=== PATIENT | male | born 1995 | race African-American/Black ===

== ENCOUNTER 2018-05-13 21:29 | Inpatient (IN) | payer OTHER ==
[~2018-05-13] VITALS: Ht 180.3 cm; Wt 97.0 kg
[2018-05-13 23:12] LABS: BASOPHIL % 0.3 % (0-2); PLATELET COUNT 235 x10^3mcL (130-400); RED CELL DISTRIBUTION WIDTH 13.3 % (11.5-14.5)
[2018-05-13 23:33] LABS: CALCIUM 9.1 mg/dL (8.5-10.1); CARBON DIOXIDE 23.5 mmol/L (21-32); CHLORIDE SERUM 102 mmol/L (98-107); GFR1 > 60 mL/min; GLUCOSE SERUM 89 mg/dL (74-106); POTASSIUM SERUM 3.8 mmol/L (3.5-5.1); SODIUM SERUM 139 mmol/L (136-145)
[2018-05-13 23:37] LABS: ALBUMIN 3.9 g/dL (3.4-5.0); ALKALINE PHOSPHATASE 68 U/L (46-116); ALT/SGPT 22 U/L (16-63); AST/SGOT 16 U/L (15-37); BILIRUBIN TOTAL 0.5 mg/dL (0.20-1.00); TOTAL PROTEIN, SERUM 7.4 g/dL (6.4-8.2)
[2018-05-14 07:54] LABS: microscopic required? NO
[2018-05-14 09:30] LABS: UA SPECIFIC GRAVITY >=1.030 (1.005-1.035); urine erythrocyte NEGATIVE (NEGATIVE)
[2018-05-14 09:47] LABS: AMPHETAMINE QUAL UR NONE DETECTED (See below)
[2018-05-14 11:19] LABS: PHOSPHOROUS 3.6 mg/dL (2.5-4.9)
[2018-05-14 11:24] LABS: CHOLESTEROL/HDL RATIO 7.9
[2018-05-14 12:16] LABS: FREE T4 1.01 ng/dL (0.76-1.46); FREE THYROXINE INDEX 2.4 ug/dL (1.4-4.5); T4(THYROXINE) 7.1 ug/dL (4.7-13.3)
[2018-05-14 12:38] LABS: T3 TOTAL 0.92 ng/mL
[2018-05-14 12:47] VITALS: BP 123/78
[2018-05-14 17:43] VITALS: BP 129/67
[2018-05-14 20:41] VITALS: BP 122/60
[2018-05-15 05:23] VITALS: BP 123/65
[2018-05-15 05:41] LABS: BASOPHIL % 0.4 % (0-2); PLATELET COUNT 221 x10^3mcL (130-400); RED CELL DISTRIBUTION WIDTH 13.1 % (11.5-14.5)
[2018-05-15 05:50] LABS: CALCIUM 8.6 mg/dL (8.5-10.1); CARBON DIOXIDE 26.5 mmol/L (21-32); CHLORIDE SERUM 98 mmol/L (98-107); CREATININE SERUM 1.1 mg/dL (0.7-1.3); GFR1 > 60 mL/min; GLUCOSE SERUM 90 mg/dL (74-106); MAGNESIUM 1.9 mg/dL (1.8-2.4); PHOSPHOROUS 4.9 mg/dL (2.5-4.9); POTASSIUM SERUM 3.9 mmol/L (3.5-5.1); SODIUM SERUM 136 mmol/L (136-145)
[2018-05-15 08:25] VITALS: BP 118/58
[2018-05-15 17:00] VITALS: BP 128/76
[2018-05-15 21:10] VITALS: BP 115/73
[2018-05-16 06:08] VITALS: BP 120/75
[2018-05-16 07:15] LABS: BASOPHIL % 0.2 % (0-2); PLATELET COUNT 217 x10^3mcL (130-400); RED CELL DISTRIBUTION WIDTH 13.3 % (11.5-14.5)
[2018-05-16 09:35] LABS: CARBON DIOXIDE 22.8 mmol/L (21-32); CHLORIDE SERUM 108 mmol/L (98-107); CREATININE SERUM 1.2 mg/dL (0.7-1.3); GFR1 > 60 mL/min; GLUCOSE SERUM 96 mg/dL (74-106); MAGNESIUM 1.8 mg/dL (1.8-2.4); PHOSPHOROUS 4.6 mg/dL (2.5-4.9); POTASSIUM SERUM 4.4 mmol/L (3.5-5.1); SODIUM SERUM 145 mmol/L (136-145)
[2018-05-16 17:41] VITALS: BP 123/84
[2018-05-16 20:47] VITALS: BP 127/78
[2018-05-17 06:11] VITALS: BP 129/77
[2018-05-17 06:39] LABS: BASOPHIL % 0.2 % (0-2); PLATELET COUNT 210 x10^3mcL (130-400); RED CELL DISTRIBUTION WIDTH 13.1 % (11.5-14.5)
[2018-05-17 06:54] LABS: CALCIUM 8.9 mg/dL (8.5-10.1); CARBON DIOXIDE 25.4 mmol/L (21-32); CHLORIDE SERUM 106 mmol/L (98-107); CREATININE SERUM 1.1 mg/dL (0.7-1.3); GFR1 > 60 mL/min; GLUCOSE SERUM 90 mg/dL (74-106); POTASSIUM SERUM 3.9 mmol/L (3.5-5.1); SODIUM SERUM 142 mmol/L (136-145)
[2018-05-17 09:12] VITALS: BP 119/62
[2018-05-17 17:04] VITALS: BP 124/69
[2018-05-17 20:51] VITALS: BP 140/81
[2018-05-18 05:12] VITALS: BP 122/83
[2018-05-18 10:38] VITALS: BP 122/85
[2018-05-18 12:29] VITALS: BP 124/79
[2018-05-18 17:51] VITALS: BP 129/78
[2018-05-18 19:18] VITALS: BP 137/71
[2018-05-19 05:04] VITALS: BP 132/51; BP 132/73
[2018-05-19 08:50] VITALS: BP 125/64
[2018-05-19 16:45] VITALS: BP 120/77
[2018-05-19 20:17] VITALS: BP 116/77
[2018-05-20 05:18] VITALS: BP 116/59
[2018-05-20 08:18] VITALS: BP 115/76
[2018-05-20 17:18] VITALS: BP 124/70
[2018-05-20 20:27] VITALS: BP 135/84
[2018-05-21 00:08] VITALS: Ht 180.3 cm; Wt 97.0 kg
[2018-05-21 05:37] VITALS: BP 117/79
[2018-05-21 08:59] VITALS: BP 115/73
[2018-05-21 18:44] VITALS: BP 103/71
[2018-05-21 20:24] VITALS: BP 115/66
[2018-05-22 05:43] VITALS: BP 97/52
[2018-05-22 09:09] VITALS: BP 124/58
[2018-05-22 17:30] VITALS: BP 128/57
[2018-05-22 20:47] VITALS: BP 116/66
[2018-05-23 05:58] VITALS: BP 127/77
[2018-05-23 08:30] VITALS: BP 112/63
[2018-05-23 17:10] VITALS: BP 117/67
[2018-05-23 20:32] VITALS: BP 130/73
[2018-05-24 05:11] VITALS: BP 107/64
[2018-05-24 07:57] VITALS: BP 126/69
[2018-05-24] MEDS ORDERED: LAM25 PO (10:15)
[2018-05-24 11:46] VITALS: BP 111/66
[2018-05-24 12:05] VITALS: BP 111/66
== END 2018-05-24 12:57 | disposition home or self-care (01) | DRG 750 ==
LOC: ED 21:29 → MU 05-14 09:50
PROVIDERS: Emergency Medicine; Family Medicine
DX: F25.0 Schizoaffective disorder, bipolar type (principal); R45.851 Suicidal ideations; E78.5 Hyperlipidemia, unspecified; F12.20 Cannabis dependence, uncomplicated; Z68.32 Body mass index [BMI] 32.0-32.9, adult; F17.210 Nicotine dependence, cigarettes, uncomplicated; Z88.8 Allergy status to other drugs, medicaments and biological substances; F19.10 Other psychoactive substance abuse, uncomplicated; Z71.51 Drug abuse counseling and surveillance of drug abuser
CPT/HCPCS: 84439; G0480; Q0092

== ENCOUNTER 2018-06-07 20:07 | Inpatient (IN) | payer OTHER ==
[~2018-06-07] VITALS: Ht 180.3 cm; Wt 99.8 kg
[~2018-06-07 20:07] MED LIST: LAM25 PO
[2018-06-07 20:15] VITALS: Ht 180.3 cm; Wt 99.8 kg
[2018-06-07 20:53] LABS: BASOPHIL % 0.3 % (0-2); PLATELET COUNT 242 x10^3mcL (130-400); RED CELL DISTRIBUTION WIDTH 13.5 % (11.5-14.5)
[2018-06-07 21:01] LABS: CALCIUM 8.9 mg/dL (8.5-10.1); CARBON DIOXIDE 24.9 mmol/L (21-32); CHLORIDE SERUM 103 mmol/L (98-107); CREATININE SERUM 1.1 mg/dL (0.7-1.3); GFR1 > 60 mL/min; GLUCOSE SERUM 84 mg/dL (74-106); POTASSIUM SERUM 3.8 mmol/L (3.5-5.1); SODIUM SERUM 139 mmol/L (136-145)
[2018-06-07 21:02] LABS: microscopic required? NO
[2018-06-07 21:06] LABS: ALBUMIN 3.8 g/dL (3.4-5.0); ALKALINE PHOSPHATASE 70 U/L (46-116); ALT/SGPT 26 U/L (16-63); AST/SGOT 20 U/L (15-37); BILIRUBIN TOTAL 0.55 mg/dL (0.20-1.00); TOTAL PROTEIN, SERUM 7.8 g/dL (6.4-8.2)
[2018-06-07 21:13] LABS: UA SPECIFIC GRAVITY 1.025 (1.005-1.035); urine erythrocyte NEGATIVE (NEGATIVE)
[2018-06-07 21:19] LABS: AMPHETAMINE QUAL UR NONE DETECTED (See below)
[2018-06-08 16:21] VITALS: BP 129/75
[2018-06-08 17:11] LABS: CHOLESTEROL/HDL RATIO 7.2; PHOSPHOROUS 3.9 mg/dL (2.5-4.9)
[2018-06-08 17:24] LABS: FREE T4 0.94 ng/dL (0.76-1.46); FREE THYROXINE INDEX 2.4 ug/dL (1.4-4.5); T4(THYROXINE) 7.8 ug/dL (4.7-13.3)
[2018-06-08 17:43] LABS: T3 TOTAL 1.17 ng/mL
[2018-06-08 20:43] VITALS: BP 138/61
[2018-06-09 05:11] VITALS: BP 132/72
[2018-06-09 06:19] LABS: CALCIUM 8.7 mg/dL (8.5-10.1); CHLORIDE SERUM 105 mmol/L (98-107); CREATININE SERUM 1.1 mg/dL (0.7-1.3); GFR1 > 60 mL/min; GLUCOSE SERUM 85 mg/dL (74-106); HDL CHOLESTEROL 35 mg/dL (40-60); POTASSIUM SERUM 4.2 mmol/L (3.5-5.1); SODIUM SERUM 138 mmol/L (136-145); TRIGLYCERIDES 159 mg/dL (<150)
[2018-06-09 06:21] LABS: BASOPHIL % 0.3 % (0-2); PLATELET COUNT 243 x10^3mcL (130-400); RED CELL DISTRIBUTION WIDTH 13.3 % (11.5-14.5)
[2018-06-09 06:43] LABS: CHOLESTEROL 262 mg/dL (<200); CHOLESTEROL/HDL RATIO 7.5
[2018-06-09 08:45] VITALS: BP 144/63
[2018-06-09 18:15] VITALS: BP 122/76
[2018-06-09 20:32] VITALS: BP 120/78
[2018-06-10 05:34] VITALS: BP 109/55
[2018-06-10] MEDS ORDERED: SEROQUEL200 MG PO (16:02)
[2018-06-10 16:10] VITALS: BP 109/55
[2018-06-10 16:58] VITALS: BP 121/58
== END 2018-06-10 17:45 | DRG 817 ==
LOC: ED 20:07 → MU 06-08 15:07 → DU 06-08 16:19 → MU 06-08 19:07
PROVIDERS: Emergency Medicine; Internal Medicine
DX: T42.4X2A Poisoning by benzodiazepines, intentional self-harm, initial encounter (principal); F25.0 Schizoaffective disorder, bipolar type; E78.5 Hyperlipidemia, unspecified; F12.10 Cannabis abuse, uncomplicated; F17.210 Nicotine dependence, cigarettes, uncomplicated; F41.9 Anxiety disorder, unspecified; Y92.018 Other place in single-family (private) house as the place of occurrence of the external cause; Z68.31 Body mass index [BMI] 31.0-31.9, adult; Z88.8 Allergy status to other drugs, medicaments and biological substances
CPT/HCPCS: 83880; 84439; G0480

== ENCOUNTER 2018-06-13 20:29 | Emergency (ER) | payer OTHER ==
[~2018-06-13] VITALS: Ht 180.3 cm; Wt 99.8 kg
[~2018-06-13 20:29] MED LIST changes: +SEROQUEL200 MG PO
[2018-06-13 20:50] LABS: BASOPHIL % 0.6 % (0-2); PLATELET COUNT 261 x10^3mcL (130-400); RED CELL DISTRIBUTION WIDTH 13.7 % (11.5-14.5)
[2018-06-13 20:55] LABS: CALCIUM 9.4 mg/dL (8.5-10.1); CARBON DIOXIDE 23.5 mmol/L (21-32); CHLORIDE SERUM 107 mmol/L (98-107); CREATININE SERUM 1.2 mg/dL (0.7-1.3); GFR1 > 60 mL/min; GLUCOSE SERUM 94 mg/dL (74-106); POTASSIUM SERUM 4.4 mmol/L (3.5-5.1); SODIUM SERUM 141 mmol/L (136-145)
[2018-06-13 21:00] LABS: ALBUMIN 4.1 g/dL (3.4-5.0); ALKALINE PHOSPHATASE 72 U/L (46-116); ALT/SGPT 22 U/L (16-63); AST/SGOT 18 U/L (15-37); BILIRUBIN TOTAL 0.6 mg/dL (0.20-1.00); TOTAL PROTEIN, SERUM 8.1 g/dL (6.4-8.2)
[2018-06-13 23:00] LABS: AMPHETAMINE QUAL UR NONE DETECTED (See below)
[2018-06-14 17:31] VITALS: BP 126/83
== END 2018-06-14 17:31 ==
LOC: ED 20:29
PROVIDERS: Emergency Medicine
DX: F31.9 Bipolar disorder, unspecified (principal); R45.851 Suicidal ideations; F41.9 Anxiety disorder, unspecified; Z88.8 Allergy status to other drugs, medicaments and biological substances
CPT/HCPCS: 36415; G0480

== ENCOUNTER 2018-08-09 19:34 | Inpatient (IN) | payer OTHER ==
[~2018-08-09] VITALS: Ht 180.3 cm; Wt 95.8 kg
[2018-08-09 19:42] VITALS: Ht 180.3 cm; Wt 95.8 kg
[2018-08-09 20:36] LABS: BASOPHIL % 0.3 % (0-2); PLATELET COUNT 288 x10^3mcL (130-400); RED CELL DISTRIBUTION WIDTH 13.6 % (11.5-14.5)
[2018-08-09 20:45] LABS: CALCIUM 8.8 mg/dL (8.5-10.1); CARBON DIOXIDE 26.3 mmol/L (21-32); CHLORIDE SERUM 104 mmol/L (98-107); CREATININE SERUM 1.4 mg/dL (0.7-1.3); GFR1 > 60 mL/min; GLUCOSE SERUM 86 mg/dL (74-106); POTASSIUM SERUM 3.9 mmol/L (3.5-5.1); SODIUM SERUM 138 mmol/L (136-145)
[2018-08-09 20:58] LABS: ALBUMIN 4.1 g/dL (3.4-5.0); ALKALINE PHOSPHATASE 65 U/L (46-116); ALT/SGPT 23 U/L (16-63); AST/SGOT 27 U/L (15-37); TOTAL PROTEIN, SERUM 7.7 g/dL (6.4-8.2)
[2018-08-09 20:59] LABS: T4(THYROXINE) 4.3 ug/dL (4.7-13.3)
[2018-08-09 22:16] LABS: AMPHETAMINE QUAL UR NONE DETECTED (See below)
[2018-08-10 07:51] LABS: MAGNESIUM 1.9 mg/dL (1.8-2.4); PHOSPHOROUS 4.1 mg/dL (2.5-4.9)
[2018-08-10 07:53] LABS: CHOLESTEROL/HDL RATIO 6.2
[2018-08-10 08:02] LABS: FREE T4 0.75 ng/dL (0.76-1.46)
[2018-08-10 08:04] LABS: FREE THYROXINE INDEX 1.5 ug/dL (1.4-4.5); T4(THYROXINE) 4.3 ug/dL (4.7-13.3)
[2018-08-10 08:13] LABS: T3 TOTAL 0.87 ng/mL
[2018-08-10] MEDS ORDERED: SEROQUEL200 MG PO (08:48)
[2018-08-10 10:11] VITALS: BP 131/81
[2018-08-10 16:18] VITALS: BP 144/78
[2018-08-10 16:20] VITALS: BP 135/63
[2018-08-10 21:12] VITALS: BP 120/63
[2018-08-10 22:49] VITALS: BP 120/63
[2018-08-11 06:28] VITALS: BP 120/59
[2018-08-11 08:39] VITALS: BP 103/52
[2018-08-11 16:05] VITALS: BP 118/64
[2018-08-12 06:49] VITALS: BP 101/44
[2018-08-12 08:56] VITALS: BP 119/56
[2018-08-12 17:30] VITALS: BP 126/66
[2018-08-12 20:51] VITALS: BP 124/68
[2018-08-13 05:34] VITALS: BP 111/62
[2018-08-13 09:14] VITALS: BP 121/65
== END 2018-08-13 15:17 | disposition home or self-care (01) | DRG 469 ==
LOC: ED 19:34 → MU 08-10 07:13
PROVIDERS: Emergency Medicine; Internal Medicine
DX: N17.0 Acute kidney failure with tubular necrosis (principal); F25.0 Schizoaffective disorder, bipolar type; R45.851 Suicidal ideations; F12.10 Cannabis abuse, uncomplicated; F41.9 Anxiety disorder, unspecified; F17.210 Nicotine dependence, cigarettes, uncomplicated; E78.5 Hyperlipidemia, unspecified; E02 Subclinical iodine-deficiency hypothyroidism; F10.10 Alcohol abuse, uncomplicated; Y90.9 Presence of alcohol in blood, level not specified; Z88.8 Allergy status to other drugs, medicaments and biological substances
CPT/HCPCS: 84439; G0480

== ENCOUNTER 2019-06-13 17:09 | Inpatient (IN) | payer OTHER ==
[~2019-06-13] VITALS: Ht 180.3 cm; Wt 111.1 kg
[2019-06-13 18:00] VITALS: Ht 180.3 cm; Wt 111.1 kg
--- NOTE | 2019-06-13 18:11 | NUR ---
PT CAME INTO ED WITH C/O OF SUICIDAL IDEATION X1 MONTH, PT STS "I HAVE THOUGHTS OF OVERDOSING ON ZYPREXA LIKE I HAVE 8 MONTHS AGO AT [facility]" PT STS "THERE IS NO POINT IN BEING HERE NO ONE ELSE WANTS ME HERE I HAVE PUSHED EVERYONE AWAY BECAUSE OF WHO I AM AND MY MENTAL HEALTH HISTORY NO ONE WANTS TO BE AROUND ME" PT STS +SI -HI WITH ACTIVE PLAN, PT STS "I DON'T TALK WITH MY FAMILY MUCH THEY KICKED ME OUT OF THEIR LIFE I LIVE WITH A FRIEND BUT I WILL PUSH THEM AWAY TOO WITH MY PERSONALITY LIKE I DO EVERYONE ELSE" PT REPORTS THE "CLOSEST PERSON TO ME IS MY ASSOCIATE" PT APPEARS HOPELESS, HOWEVER CALM AND COOPERATIVE, PT AAOX4, RESPS E/U, SKIN INTACT, VSS, PT GOWNED, SAFETY PRECAUTIONS IN PLACE, PT BELONGINGS LABELED AND PLACED IN RADIO RM, PT VIEW OF NURSE STATION, WILL CONTINUE TO MONITOR
--- NOTE | 2019-06-13 18:12 | NUR ---
PT STS HX SCHIZOPHRENIA AND BIPOLAR DISORDER
--- NOTE | 2019-06-13 18:12 | NUR ---
PT INSTRUCTED TO PROVIDE URINE SPECIMEN ONOFRE
--- NOTE | 2019-06-13 18:15 | NUR ---
LAB AT BEDSIDE
[2019-06-13 18:32] LABS: BASOPHIL % 0.4 % (0-2); PLATELET COUNT 260 x10^3mcL (130-400); RED CELL DISTRIBUTION WIDTH 13.7 % (11.5-14.5)
[2019-06-13 18:39] LABS: CALCIUM 8.5 mg/dL (8.5-10.1); CARBON DIOXIDE 23.5 mmol/L (21-32); CHLORIDE SERUM 107 mmol/L (98-107); CREATININE SERUM 1.2 mg/dL (0.7-1.3); GFR1 > 60 mL/min; GLUCOSE SERUM 88 mg/dL (74-106); POTASSIUM SERUM 3.4 mmol/L (3.5-5.1); SODIUM SERUM 141 mmol/L (136-145)
[2019-06-13 18:42] LABS: ALBUMIN 3.6 g/dL (3.4-5.0); ALKALINE PHOSPHATASE 71 U/L (46-116); ALT/SGPT 27 U/L (16-63); AST/SGOT 22 U/L (15-37); BILIRUBIN TOTAL 0.7 mg/dL (0.20-1.00); TOTAL PROTEIN, SERUM 7.2 g/dL (6.4-8.2)
[2019-06-13 19:10] LABS: AMPHETAMINE QUAL UR POSITIVE (See below)
--- NOTE | 2019-06-13 19:10 | NUR ---
REPORT GIVEN TO RBAD STILES RN WHO IS RESUMING CARE OF PT AT THIS TIME
--- NOTE | 2019-06-13 19:15 | NUR ---
PT REPORT RECEIVED FROM MICAELA SHERIFF TO ASSUME CARE. PT RESTING IN A POSITION OF COMFORT AT THIS TIME, AOX4, RESP EVEN AND UNLABORED, NO ACUTE DISTRESS NOTED. PT CONTINUES TO VERBALIZED SUICIDAL IDEATIONS AT THIS TIME. PT CALM AND COOPERATIVE AT THIS TIME. IN VIEW OF NURSE'S STATION FOR COMFORT.
--- NOTE | 2019-06-13 19:20 | NUR ---
PT PROVIDED WITH TUNA SANDWICH, APPLE JUICE, AND MARILU CRACKERS, PT DENIES FOOD ALLERGIES.
--- NOTE | 2019-06-13 20:15 | NUR ---
PT RESTING IN A POSITION OF COMFORT AOX4, RESP EVEN AND UNLABORED, NO ACUTE DISTRESS NOTED. TELE PSYCH MONITOR AT BEDSIDE.
--- NOTE | 2019-06-13 21:07 | NUR ---
PT RESTING WITH EYES CLOSED, RESP EVEN AND UNLABORED, CHEST RISE AND FALL NOTED. PT REMAINS IN VIEW OF NURSE'S STATION FOR SAFETY.
--- NOTE | 2019-06-13 22:31 | NUR ---
PT CONTINUES TO REST WITH EYES CLOSED, RESP EVEN AND UNLABORED, NO ACUTE DISTRESS NOTED. PT ON SIDE.
--- NOTE | 2019-06-13 23:14 | NUR ---
MOVED PT BELONGINGS TO STORAGE BY [employer].
--- NOTE | 2019-06-14 00:06 | NUR ---
PT RESTING WITH EYES CLOSED, RESP EVEN AND UNLABORED, NO ACUTE DISTRESS NOTED.
--- NOTE | 2019-06-14 01:26 | NUR ---
PT RESTING IN A POSITION OF COMFORT, CHEST RISE AND FALL NOTED. PT REMAINS ON MONITOR IN VIEW OF NURSE'S STATION.
--- NOTE | 2019-06-14 02:12 | NUR ---
SPOKE WITH DR PONCE AND PROVIDED WITH PT REPORT.
--- NOTE | 2019-06-14 02:37 | NUR ---
TELE PSYCH EVAL IN PROGRESS AT THIS TIME.
--- NOTE | 2019-06-14 03:38 | NUR ---
PT RESTING IN A POSITION OF COMFORT WITH EYES CLOSED, RESP EVEN AND UNLABORED, NO ACUTE DISTRESS NOTED.
--- NOTE | 2019-06-14 04:51 | NUR ---
5150 WRITTEN BY [place] [employer] OFFICER FELICIANO #[id number] AND ORIGINAL [id number] PLACED IN CHART.
--- NOTE | 2019-06-14 07:10 | NUR ---
PT IS AWAKE, LAYING IN GURNEY, REMAINS IN DIRECT LINE OF VISION OF NURSES STATION.
--- NOTE | 2019-06-14 07:11 | NUR ---
[facility] still actively working on finding placement for this pt. Per scene shifter no openings overnight. Will f/u with facilities. Will contact with any update.
--- NOTE | 2019-06-14 07:47 | NUR ---
PT'S BREAKFAST AT BEDSIDE. PT SLEEPING IN GURNEY, GOOD CHEST RISE AND FALL NOTED. PT REMAINS IN DIRECT LINE OF SIGHT OF NURSE'S STATION.
--- NOTE | 2019-06-14 07:51 | NUR ---
PT ATE BREAKFAST, IS LAYING IN GURNEY RESTING, AWAKE, ALERT, SPEAKING IN FULL CLEAR SENTENCES. PT IS CALM AND COOPERATIVE.
--- NOTE | 2019-06-14 09:31 | NUR ---
PT RESTING IN GURNEY, AWAKE, ALERT, CALM, AND COOPERATIVE, REQUESTING A SANDWICH AND SODA. PT CONTINUES TO FEEL SI.
--- NOTE | 2019-06-14 10:41 | NUR ---
PT RESTING IN RPEPIN, REMAINS CALM AND COOPERATIVE. CONTINUES TO BE IN DIRECT LINE OF VISION OF NURSE'S STATION.
--- NOTE | 2019-06-14 11:16 | NUR ---
F/U with contracted facilities: [facility]: s/w Sergio No beds at this time. Packet on file for future openings. [facility]: Rang continuously, unable to leave message. [facility]: s/w Gogo No beds at this time [facility] Intake stated no beds. [facility]: Gabriel Nevarez, no beds at this time. Will continue to f/u, will contact with any updates.
--- NOTE | 2019-06-14 12:56 | NUR ---
PT SITTING UP IN BED EATING LUNCH, IN VIEW OF THE NURSE'S STATION.
--- NOTE | 2019-06-14 13:57 | NUR ---
PT RESTING IN GURNEY, GOOD CHEST RISE AND FALL NOTED. IN DIRECT SIGHT OF NURSE'S STATION.
--- NOTE | 2019-06-14 14:53 | NUR ---
PT ASKED IF HE CONTINUES TO HAVE SI, PT NODDING HIS HEAD YES. PT IS LAYING IN GURNEY, AWAKE, ALERT, CALM AND COOPERATIVE. PT REMAINS IN DIRECT SIGHT OF NURSE'S STATION.
--- NOTE | 2019-06-14 16:02 | NUR ---
PT SLEEPING IN GURNEY, GOOD CHEST RISE AND FALL NOTED. PT REMAINS IN DIRECT SIGHT OF NURSE'S STATION. RESP E/U, NAD NOTED.
--- NOTE | 2019-06-14 17:02 | NUR ---
PT AWAKE, REQUESTING SANDWICH. PT IS CALM AND COOPERATIVE, CONTINUES TO BE IN SIGHT OF NURSE'S STATION. NAD NOTED.
--- NOTE | 2019-06-14 18:19 | NUR ---
PT INQUIRING ABOUT PLACEMENT, WILL FOLLOW UP WITH NEXT PLAN OF CARE
[2019-06-14] MEDS ORDERED: ZYPREXA10 M1 PO (18:53)
[2019-06-14] MEDS ORDERED: PROZAC40 MG PO (18:53)
--- NOTE | 2019-06-14 19:08 | NUR ---
REPORT CALLED TO [employer] LINE WORKER JIMMY TO ASSUME CARE FOR PT.
[2019-06-14 19:31] VITALS: BP 113/51
--- NOTE | 2019-06-14 19:36 | NUR ---
[facility] NOC shift is aware of patient and will continue to call for psych placement with contracted [facility] facilities.
--- NOTE | 2019-06-14 19:40 | NUR ---
RECEIVED FROM ER, TRANSPORTED VIA [facility]. AWAKE AND ALERT, ABLE TO MAKE NEEDS KNOWN. BREATHING EVEN AND UNLABORED ON ROOM AIR. SALINE LOCK TO RIGHT AC, INTACT. 5150 HOLD. SITTER IN ROOM. PT STATED HE LIVES IN AN APARTMENT WITH A FRIEND, BUT WILL NOT PROVIDE ANY EMERGENCY CONTACT. CALM, DENIES HAVING AUDITORY OR VISUAL HALLUCINATIONS. STATED HAS THOUGHTS OF HURTING HIMSELF. INSTRUCTED ON USE OF CALL LIGHT TO CALL FOR ASSISTANCE, PLACED, WITHIN EASY REACH. STATED HE WAS HUNGRY, WAS PROVIDED SANDWICH BY NURSE ZAMAN. ENDORSED TO NURSE ZAMAN
[2019-06-14 20:02] VITALS: BP 133/61
--- NOTE | 2019-06-14 22:18 | NUR ---
Follow up calls were made to contracted [facility] facilities, still no beds available at this time. [facility], spoke with Jen. [facility], spokew isaac Schneider. [facility], no answer, left message to [phone]. [facility], spoke with Felix. [facility], spoke with Richa. [facility], spoke with Jolie. [facility], spoke with Raquel. [facility], spoke with Salena. Unit will be notified if and when a bed becomes available.
--- NOTE | 2019-06-15 00:19 | NUR ---
PT ASLEEP COMFORTABLY IN BED. SITTER AT BEDSIDE. NO ACUTE DISTRESS NOTED. EVEN AND UNLABORED RESPIRATION ON RA. MEDSURG PT. IVL PATENT AND INTACT. BED IN LOWEST POSITION. SIDE RAILS UPX2. CALL LIGHT WITHIN REACH. WILL CONTINUE TO MONITOR.
--- NOTE | 2019-06-15 06:47 | NUR ---
PT SLEPT COMFORTABLY IN INTERVALS THROUGHOUT THE SHIFT. SITTER AT BEDSIDE. NO ACUTE CHANGES NOTED. ALL NEEDS TENDED TO AND MET. ALL SCHEDULED MEDICATIONS GIVEN. IVL PATENT AND INTACT. STILL HAVING SUICIDAL THOUGHTS. BED IN LOWEST POSITION. SIDE RAILS UPX2. CALL LIGHT WITHIN REACH. WILL ENDORSE TO ONCOMING SHIFT.
[2019-06-15 07:05] VITALS: BP 106/60
--- NOTE | 2019-06-15 07:34 | NUR ---
RECEIVED HAND OFF REPORT FROM NIGHT NURSE, AUSTYN. PATIENT RIGHT SIDE LAYING IN BED ON ROOM AIR. AWOKEN TO VOICE, A/OX4. PATIENT STATES HE HAD A GOOD NIGHT AND IS "JUST WAITING FOR PLACEMENT" PATIENT DID NOT VOICE ANY SUICIDAL IDIATIONS AT THIS TIME. ON 5150 HOLD FOR STATING HE WANTED TO END HIS LIFE WITH [facility] BUT DID NOT HAVE THE PILLS TO DO SO. ON SUICIDAL PRECAUTIONS WITH SITTER IN ROOM. M/S PATIENT DENIES CHEST PAIN. 20G IV TO RIGHT AC FLUSHING WELL. NO LABS THIS AM. PATIENT IS MEDICALLY CLEARED AND AWAITING PLACEMENT. ORIENTED PATIENT TO CALL LIGHT AND PLACED CALL LIGHT WITHIN REACH, INSTRUCTED TO TELL SITTER IF NEEDING ANYTHING OR TO USE CALL LIGHT
--- NOTE | 2019-06-15 07:44 | NUR ---
No updates on placement per nightshift, contacted the following facilities: [facility]: s/w Jen, [facility]: s/w Jennie, facility is full for the night. [facility]: No answer, left voicemail. [facility]: s/w Felix No beds available. [facility]: s/w Diann, states no available beds. [facility]: s/w Jolie, states no beds available, packet on file. [facility]: s/w Analy, states possible d/cs in the morning, requests to call back during AM shift. [facility]: s/w Salena, no beds at this time. Day shift will continue to actively work on finding placement. Will contact with any updates.
--- NOTE | 2019-06-15 08:51 | NUR ---
ADMINISTERED MEDICAITON PER NOV. PATIENT HAD NO QUESTIONS AT THIS TIME. RESTING IN BED. CALL LIGHT WITHIN REACH, SITTER IN ROOM
[2019-06-15 11:52] VITALS: BP 115/61
--- NOTE | 2019-06-15 12:47 | NUR ---
PATIENT RESTING A THIS TIME, LAYING SUPINE IN BED. RESPONSIVE TO VOICE. SIGHING DEEPLY AND STATING THAT HE "ISN'T IN A GOOD PLACE RIGHT NOW" BUT WOULD NOT ELABORATE HIS STATEMENT. DENEIS ANY NEEDS. UNDERSTANDING OF SITTER IN ROOM FOR OBSERVATION AND SAFETY. CALL LIGHT WITHIN REACH
--- NOTE | 2019-06-15 14:13 | NUR ---
[facility]: s/w Daphne, no beds at this time, possible openings later today, packet on file for waitlist. [facility]: s/w Larry, states no openings, packet on file for waitlist. [facility]: s/w Swapnil, states no openings today, completely saturated. [facility]: s/w Jolie No openings today. [facility]: rang continously, unable to leave message, packet faxed. [facility]: s/w Esther, no beds at this time , packet on file. Will continue to look for placement. Will contact with any updates.
--- NOTE | 2019-06-15 18:18 | NUR ---
PATIENT NEEDS MET DURING SHIFT, NO CHANGED IN PLACEMENT STATUS. PPATIENT AWARE, NEW ORDERS FOR AM LABS. WILL ENDORSE APTIENT TO HEATER OPERATOR
--- NOTE | 2019-06-15 19:05 | NUR ---
CARE ASSUMED FROM OUTGOING RN. PT RESTING COMFORTABLY IN BED. NO ACUTE DISTRESS NOTED. SITTER AT BEDSIDE. IV DISLOGDED ACCIDENTALLY WHEN IN BATHROOM, CATHETER INTACT, PRESSURE APPLIED, BLEEDING STOPPED. WILL MAKE MD AWARE. EVEN AND UNLABORED RESPIRATIONS ON RA. MEDSURG PT. BED IN LOWEST POSITION. SIDE RAILS UPX2. CALL LIGHT WITHIN REACH. WILL CONTINUE TO MONITOR.
[2019-06-15 20:12] VITALS: BP 133/52
--- NOTE | 2019-06-15 20:17 | NUR ---
Shift report given, will continue to monitor notes and help with placement
--- NOTE | 2019-06-16 00:21 | NUR ---
PT ASLEEP COMFORTABLY IN BED. SITTER AT BEDSIDE. EVEN AND UNLABORED RESPIRATIONS ON RA. NO IV ACCESS AT THIS TIME, MD AWARE. BED IN LOWEST POSITION. SIDE RAILS UPX2. CALL LIGHT WITHIN REACH. WILL CONTINUE TO MONITOR.
[2019-06-16 05:09] VITALS: BP 105/65
[2019-06-16 06:19] LABS: BASOPHIL % 0.3 % (0-2); PLATELET COUNT 216 x10^3mcL (130-400); RED CELL DISTRIBUTION WIDTH 13.9 % (11.5-14.5)
--- NOTE | 2019-06-16 06:25 | NUR ---
PT SLEPT COMFORTABLY IN INTERVALS THROUGHOUT THE SHIFT. SITTER AT BEDSIDE. NO ACUTE CHANGES NOTED. ALL NEEDS TENDED TO AND MET. ALL SCHEDULED MEDICATIONS GIVEN. BED IN LOWEST POSITION. SIDE RAILS UPX2. CALL LIGHT WITHIN REACH. WILL ENDORSE TO ONCOMING SHIFT.
[2019-06-16 06:37] LABS: CALCIUM 8.4 mg/dL (8.5-10.1); CARBON DIOXIDE 26.1 mmol/L (21-32); CHLORIDE SERUM 110 mmol/L (98-107); GFR1 > 60 mL/min; GLUCOSE SERUM 82 mg/dL (74-106); MAGNESIUM 1.9 mg/dL (1.8-2.4); POTASSIUM SERUM 3.5 mmol/L (3.5-5.1); SODIUM SERUM 144 mmol/L (136-145)
--- NOTE | 2019-06-16 07:15 | NUR ---
REPORT RCD FROM JAZIEL ZAMAN. PATIENT ASLEEP, REGULAR RESPS, SITTER AT BEDSIDE. BED LOW. PER JAZIEL ZAMAN, PATIENT PULLED IV YESTERDAY AND MD AWARE AND THERE IS NO NEED FOR IV. NO IV ACCESS AT THIS TIME. WILL MONITOR.
--- NOTE | 2019-06-16 08:20 | NUR ---
SHIFT ASSESSMENT PERFORMED AND DOCUMENTED. PATIENT SITTING UP EATING BREAKFAST. APPEARS SAD AND DEPRESSED. WHEN ASKED NAME PATIENT STATES "YOU KNOW MY NAME", BUT THEN AGREES TO GIVE NAME AND . COOPERATIVE WITH ASSESSMENT BUT HAS DEPRESSED MOOD. WHEN ASKED IF HE HAS THOUGHTS OF HURTING HIMSELF, HE DENIES. INSTRUCTED PATIENT TO INFORM SITTER IF HE HAS ANY NEEDS AND SHE WILL CALL FOR NURSE. PATIENT AGREES VERBALLY. BED LOW. WILL MONITOR.
--- NOTE | 2019-06-16 09:04 | NUR ---
MEDICATIONS GIVEN PER MAR. PATIENT IS CALM, RESTING ON RIGHT SIDE AFTER TAKING MEDICATIONS. SITTER AT BEDSIDE. NO OTHER NEEDS AT THIS TIME. WILL MONITOR.
[2019-06-16 09:07] VITALS: BP 123/83
--- NOTE | 2019-06-16 10:03 | NUR ---
PATIENT ASLEEP, REGULAR RESPS, SITTER AT BEDSIDE, BED LOW. WILL MONITOR.
--- NOTE | 2019-06-16 10:18 | NUR ---
[facility] CRITICAL LAB THAT PATIENT MRSA NARES POSITIVE. INFORMED CLYDE CHARGE NURSE. TELEPHONED NURSE PRACTITIONER, DARIN AND INFORMED OF RESULT WHO GAVE TELEPHONE ORDER FOR MRSA IN PATIENT PROTOCOL, ENTERED BY NURSE AT THIS TIME. ALSO INFORMED DENYS WEBSTER THAT PATIENT HAS NO IV ACCESS FROM PREVIOUS SHIFT. OKAY TO CONTINUE WITHOUT IV ACCESS PER DENYS WEBSTER. PER VENKATESH TANG NURSE, PATIENT WILL BE ISOLATED ONOFRE.
--- NOTE | 2019-06-16 11:39 | NUR ---
SHERRIE WASH PROVIDED TO AMAURY HANSON TO ASSIST PATIENT WITH MRSA PROTOCOL TREATMENT. PATIENT ASLEEP AT THIS TIME, REGULAR RESPS, SITTER AT BEDSIDE.
--- NOTE | 2019-06-16 13:18 | NUR ---
f/u with contracted facilities: [facility]: No beds at this time, packet on file. [facility]: No beds, requests not to fax packet until open beds. [facility]: No openings today. [facility]: No answer, packet refaxed. [facility]: No openings at this time, packet on file. [facility]: Packet on file. No beds.
--- NOTE | 2019-06-16 13:45 | NUR ---
PATIENT ASLEEP, REGULAR RESPS, LYING ON LEFT SIDE. BED LOW, SITTER AT BEDSIDE. WILL MONITOR.
--- NOTE | 2019-06-16 14:42 | NUR ---
PATIENT ASLEEP, REGULAR RESPS, SITTER AT BEDSIDE.
--- NOTE | 2019-06-16 16:32 | NUR ---
PATIENT AWAKE, WATCHING TELEVISION AT THIS TIME. REPORTS NO NEEDS, IS POLITE TO NURSE. BED LOW. SITTER AT BEDSIDE.
[2019-06-16 16:33] VITALS: BP 129/81
--- NOTE | 2019-06-16 17:53 | NUR ---
PATIENT APPEARS TO BE IN A BETTER MOOD AT THIS TIME, FRIENDLY, MORE TALKATIVE. REQUESTING A SANDWICH HE IS STILL HUNGRY, PROVIDED ONE FROM PATIENT REFRIGERATOR. NO OTHER NEEDS. CONTINUE TO WAIT FOR DR. JORGE TO CONSULT AND PLACEMENT FOR PATIENT. SITTER AT BEDSIDE.
--- NOTE | 2019-06-16 19:29 | NUR ---
REPORT GIVEN TO JAZIEL SINGH. PATIENT AHS BEEN RELOCATED TO ISOLATION WITH SITTER FOR MRSA POSITIVE NARES, CONTACT PRECAUTIONS. PT APPEARS TO BE IN A BETTER MOOD THIS EVENING, MORE TALKATIVE. BED LOW, CALL LIGHT WITHIN REACH. CARE ENDORSED.
--- NOTE | 2019-06-16 19:30 | NUR ---
RECIEVED PATIENT AT START OF SHIFT A/O X4. PATIENT STATES HE FEELS DEPRESSED AND PLANS TO COMMIT SUICIDE BY OVERDOSE. PATIENT IS AWAITING CONSULT FROM DR. JORGE. 3365 ACTIVE, SITTER AT BEDSIDE. CONTACT PRECAUTIONS IN PLACE FOR POSITIVE MRSA OF NARES. BED LOCKED AND IN LOWEST POSITION. CALL LIGHT AND BEDSIDE TABLE WITHIN REACH. NO IV ACCESS. FAST FOODS WORKER DARIN CHAVEZ.
[2019-06-16 21:00] VITALS: BP 135/65
--- NOTE | 2019-06-17 00:14 | NUR ---
PATIENTS EYES ARE CLOSED. BREATHS EVEN AND REGULAR. NO SIGNS OF DISTRESS. SITTER AT BEDSIDE. CALL LIGHT AND BEDSIDE TABLE WITHIN REACH.
--- NOTE | 2019-06-17 00:36 | NUR ---
Spoke with nurse Flor regarding patient. She is aware of the hold expiring and will update us. She did state that the patient will still need isolation precautions
[2019-06-17 04:51] VITALS: BP 113/52
--- NOTE | 2019-06-17 06:11 | NUR ---
PATIENT IS AWAKE. REFUSED LABS THIS MORNING. DR. PETTIT AWARE. DENIES PAIN. NO SOB ON RA. NO IV ACCESS. BED LOCKED AND IN LOWEST POSIITON. CALL LIGHT WITHIN REACH. WILL ENDORSE CARE TO DAYSHIFT NURSE.
--- NOTE | 2019-06-17 06:13 | NUR ---
PATIENTS EYES ARE CLOSED, BREATHS EVEN. NO SOB ON RA. NO IV ACCESS. BED LOCKED AND IN LOWEST POSIITON. CALL LIGHT WITHIN REACH. SITTER AT BEDSIDE. WILL ENDORSE CARE TO DAYSHIFT NURSE.
--- NOTE | 2019-06-17 08:30 | NUR ---
AAO TIMES 4. MED SURG. LUNGS CTA. NO SOB. O2 SAT ON RA 98%. BS'S ACTIVE TIMES 4. NO IV SITE. CONTACT ISOLATION FOR MRSA NARES. PERIHPERAL PULSES PALPABLE. NO EDEMA. NO C/O PAIN. WHEN ASKED HE STATES "I STILL FEEL SUICIDAL".
[2019-06-17 08:50] VITALS: BP 119/70
--- NOTE | 2019-06-17 12:35 | NUR ---
COVERING FOR PRIMARY RN, PATIENT REQUESTING FOR DIFFERENT LUNCH ENTREE. REQUESTING FOR PB/J SANDWICH. KITCHEN STAFF MADE AWARE AND WILL DELIVER TO PATIENT. NO SIGN OF ACUTE DISTRESS. SITTER AT BEDSIDE.
[2019-06-17 16:43] VITALS: BP 115/55
--- NOTE | 2019-06-17 17:20 | NUR ---
DARIN MCFARLANE NOTIFIED THAT THIS PATIENT CLEARED FROM , BUT HIS LONG TERM CLOSED [id number] TODAY, HE IS HOMELESS. HE WILL LIKELY BE DISCHARGED TOMORROW.
--- NOTE | 2019-06-17 17:52 | NUR ---
AAO TIMES 4. HE WAS CLEARED FROM HIS BY DR JORGE. AMBULATORY, HE TOOK A A SHOWER TODAY. NO C/O PAIN. NO SOB. VS'S STABLE. COOPERATIVE. NO IV SITE.
--- NOTE | 2019-06-17 19:25 | NUR ---
RECIEVED PT RESTING IN BED WITH NO ACUTE DISTRESS, ASSESMENT PERFORMED, PT IS A/OX4, NO COMPLAINTS OF SINGER OR DIZZINESS, PT DENIES SI AT THIS TIME, PT DENIES PAIN OR SOB, SAFETY PRECAUTIONS IN PLACE, PT HAS NO IV, DR AWARE, ALL NEEDS ATTENDED TO WILL COTNTINUE TO MONITOR.
[2019-06-17 20:25] VITALS: BP 138/57
--- NOTE | 2019-06-17 22:20 | NUR ---
PT RESTING IN BED WITH NO ACUTE DISTRESS, WATCHING TV, PT DENIES PAIN AT THIS TIME, ALL NEEDS ATTENDED TO WILL CONTINUE TO MONITOR
--- NOTE | 2019-06-18 00:10 | NUR ---
PT RESTING IN BED AT THIS TIME, PT DENIES PAIN OR SOB, ALL PT NEEDS ATTENDED TO AT THIS TIME, SAFETY PRECAUTIONS IN PLACE, WILL CONTINUE TO MONITOR
[2019-06-18 05:12] VITALS: BP 119/43
--- NOTE | 2019-06-18 05:23 | NUR ---
PT RESTED COMFORTABLY THROUGHOUT THE NIGHT, THE PATIENT DENIED PAIN OR SOB, PT DENIED THOUGHTS OF SI, ALL PT NEEDS WERE ATTENDED TO THROUGHOUT SHIFT, WILL CONTINUE TO MONITOR AND ENDORSE CARE TO ONCOMING RN
--- NOTE | 2019-06-18 07:35 | NUR ---
RECEIVED PATIENT SLEEPING IN BED, AROUSABLE. DENIES PAIN. NO ACUTE DISTRESS NOTED. PATIENT ON ROOM AIR. PATIENT AMBULATORY WITH NO ASSIST. NO IV ACCESS NOTED. PATIENT DENIES THOUGHTS OF SUICIDE, DENIES PLAN. CALL LIGHT WITHIN REACH, BED IN LOW POSITION. WILL CONTINUE TO MONITOR.
[2019-06-18 08:35] VITALS: BP 134/74
--- NOTE | 2019-06-18 09:13 | NUR ---
Change of shift report given, will continue to monitor notes and help facilitate placement
[2019-06-18] MEDS ORDERED: BACOO (10:19)
[2019-06-18] MEDS ORDERED: APLICARE ANTIS118 M3 TOP (10:21)
[2019-06-18 11:57] VITALS: BP 134/74
--- NOTE | 2019-06-18 12:30 | NUR ---
PATIENT WAS DISCHARGED TODAY. PATIENT WHEN DOWN WITH INTELLECTUAL PROPERTY PARALEGAL AT SIDE. PATIENT RECEIVED BUS PASS FOR TRANSPORTATION. PATIENT STATED HE WILL BE HEADING TO [facility]. PATIENT RECEIVED COPY OF DISCHARGED INSTRUCTIONS, PATIENT UNDERSTANDS & AGREES WITH D/C INSTRUCTIONS AND PLAN OF CARE INLUDING FOLLOW UP WITH PCP & MEDICATIONS. PATIENT HAD NO IV UPON D/C. ARMBANDS REMOVED. CLOTHS & FOOD OFFERED.
== END 2019-06-18 12:24 | disposition home or self-care (01) | DRG 753 ==
LOC: ED 17:09 → MU 06-14 17:39
PROVIDERS: Emergency Medicine; ADMIT General Practice
DX: F31.9 Bipolar disorder, unspecified (principal); R45.851 Suicidal ideations; Z91.14 Patient's other noncompliance with medication regimen; F41.8 Other specified anxiety disorders; F12.10 Cannabis abuse, uncomplicated; F15.10 Other stimulant abuse, uncomplicated; F17.210 Nicotine dependence, cigarettes, uncomplicated; Z88.8 Allergy status to other drugs, medicaments and biological substances; Z91.013 Allergy to seafood; F41.9 Anxiety disorder, unspecified
CPT/HCPCS: G0378; G0480

== ENCOUNTER 2019-08-24 17:40 | Inpatient (IN) | payer OTHER ==
[~2019-08-24] VITALS: Ht 180.3 cm; Wt 103.4 kg
[~2019-08-24 17:40] MED LIST changes: +APLICARE ANTIS118 M3 TOP; +BACOO; +PROZAC40 MG PO; +ZYPREXA10 M1 PO
[2019-08-24 17:48] VITALS: Ht 180.3 cm; Wt 103.4 kg
[2019-08-24 18:41] LABS: BASOPHIL % 0.2 % (0-2); PLATELET COUNT 260 x10^3mcL (130-400); RED CELL DISTRIBUTION WIDTH 13.5 % (11.5-14.5)
[2019-08-24 18:48] LABS: CALCIUM 8.5 mg/dL (8.5-10.1); CHLORIDE SERUM 107 mmol/L (98-107); CREATININE SERUM 1.4 mg/dL (0.7-1.3); GFR1 > 60 mL/min; GLUCOSE SERUM 124 mg/dL (74-106); POTASSIUM SERUM 3.9 mmol/L (3.5-5.1); SODIUM SERUM 142 mmol/L (136-145)
[2019-08-24 18:53] LABS: ALBUMIN 3.9 g/dL (3.4-5.0); ALKALINE PHOSPHATASE 76 U/L (46-116); ALT/SGPT 22 U/L (16-63); AST/SGOT 16 U/L (15-37); BILIRUBIN TOTAL 0.7 mg/dL (0.20-1.00); TOTAL PROTEIN, SERUM 7.8 g/dL (6.4-8.2)
[2019-08-24 20:02] LABS: microscopic required? NO
[2019-08-24 20:37] LABS: UA SPECIFIC GRAVITY 1.025 (1.005-1.035); urine erythrocyte NEGATIVE (NEGATIVE)
[2019-08-24 20:51] LABS: AMPHETAMINE QUAL UR POSITIVE (See below)
[2019-08-25 18:40] LABS: PHOSPHOROUS 2.8 mg/dL (2.5-4.9)
[2019-08-25 18:45] LABS: T3 TOTAL 0.94 ng/mL
[2019-08-25 18:53] LABS: FREE T4 0.93 ng/dL (0.76-1.46); T4(THYROXINE) 5.8 ug/dL (4.7-13.3)
[2019-08-25 20:44] VITALS: BP 131/78
[2019-08-26 09:08] VITALS: BP 132/80
[2019-08-26 13:00] VITALS: BP 129/70
[2019-08-26 17:22] VITALS: BP 121/72
[2019-08-26 17:41] LABS: CALCIUM 8.6 mg/dL (8.5-10.1); CARBON DIOXIDE 27.3 mmol/L (21-32); CHLORIDE SERUM 107 mmol/L (98-107); CREATININE SERUM 1.2 mg/dL (0.7-1.3); GFR1 > 60 mL/min; GLUCOSE SERUM 79 mg/dL (74-106); POTASSIUM SERUM 3.8 mmol/L (3.5-5.1); SODIUM SERUM 143 mmol/L (136-145)
[2019-08-26 18:32] LABS: BASOPHIL % 0.3 % (0-2); PLATELET COUNT 222 x10^3mcL (130-400); RED CELL DISTRIBUTION WIDTH 13.6 % (11.5-14.5)
[2019-08-26 20:37] VITALS: BP 138/82
[2019-08-27 09:00] VITALS: BP 133/82
[2019-08-27 13:51] VITALS: BP 135/79
[2019-08-27 16:59] VITALS: BP 115/76
[2019-08-28 05:00] VITALS: BP 135/74
[2019-08-28 09:30] VITALS: BP 125/67
[2019-08-28 17:00] VITALS: BP 127/73
[2019-08-28 20:05] VITALS: BP 140/83
[2019-08-29 04:40] VITALS: BP 114/62
[2019-08-29 07:03] VITALS: BP 104/68
[2019-08-29 10:57] VITALS: BP 125/76
[2019-08-29 12:52] VITALS: BP 125/76
[2019-08-29] MEDS ORDERED: BACO TOP (13:30)
== END 2019-08-29 13:35 | disposition home or self-care (01) | DRG 750 ==
LOC: ED 17:40 → MU 08-25 16:36
PROVIDERS: Emergency Medicine; ADMIT Internal Medicine
DX: F25.0 Schizoaffective disorder, bipolar type (principal); R45.851 Suicidal ideations; R45.850 Homicidal ideations; F41.1 Generalized anxiety disorder; F15.10 Other stimulant abuse, uncomplicated; F12.10 Cannabis abuse, uncomplicated; Z91.14 Patient's other noncompliance with medication regimen; Z59.0 Homelessness; Z22.322 Carrier or suspected carrier of Methicillin resistant Staphylococcus aureus; Z68.33 Body mass index [BMI] 33.0-33.9, adult
CPT/HCPCS: 83880; 84439; G0378; G0480; Q0092

== ENCOUNTER 2019-09-14 18:58 | Inpatient (IN) | payer OTHER ==
[~2019-09-14] VITALS: Ht 180.3 cm; Wt 106.2 kg
[~2019-09-14 18:58] MED LIST changes: +BACO TOP
[2019-09-14 19:52] LABS: microscopic required? NO
[2019-09-14 20:08] LABS: UA SPECIFIC GRAVITY >=1.030 (1.005-1.035); urine erythrocyte NEGATIVE (NEGATIVE)
[2019-09-14 20:12] LABS: BASOPHIL % 0.3 % (0-2); PLATELET COUNT 221 x10^3mcL (130-400); RED CELL DISTRIBUTION WIDTH 13.4 % (11.5-14.5)
[2019-09-14 20:17] LABS: AMPHETAMINE QUAL UR NONE DETECTED (See below)
[2019-09-14 20:22] LABS: CALCIUM 9.1 mg/dL (8.5-10.1); CARBON DIOXIDE 25.1 mmol/L (21-32); CHLORIDE SERUM 105 mmol/L (98-107); GFR1 > 60 mL/min; GLUCOSE SERUM 86 mg/dL (74-106); POTASSIUM SERUM 4.1 mmol/L (3.5-5.1); SODIUM SERUM 139 mmol/L (136-145)
[2019-09-14 20:27] LABS: ALKALINE PHOSPHATASE 68 U/L (46-116); ALT/SGPT 28 U/L (16-63); AST/SGOT 20 U/L (15-37); BILIRUBIN TOTAL 0.6 mg/dL (0.20-1.00)
[2019-09-15 20:27] LABS: PHOSPHOROUS 4.3 mg/dL (2.5-4.9)
[2019-09-15 21:15] VITALS: BP 132/84
[2019-09-15 21:21] VITALS: Ht 180.3 cm; Wt 106.2 kg
[2019-09-16 06:54] VITALS: BP 107/51
[2019-09-16 08:38] VITALS: BP 109/54
[2019-09-16 15:57] VITALS: BP 127/60
[2019-09-16 19:43] VITALS: BP 119/75
[2019-09-16 21:19] LABS: BASOPHIL % 0.4 % (0-2); PLATELET COUNT 219 x10^3mcL (130-400); RED CELL DISTRIBUTION WIDTH 13.1 % (11.5-14.5)
[2019-09-16 21:35] LABS: CALCIUM 8.6 mg/dL (8.5-10.1); CARBON DIOXIDE 28.5 mmol/L (21-32); CHLORIDE SERUM 103 mmol/L (98-107); CREATININE SERUM 1.2 mg/dL (0.7-1.3); GFR1 > 60 mL/min; GLUCOSE SERUM 101 mg/dL (74-106); POTASSIUM SERUM 3.8 mmol/L (3.5-5.1); SODIUM SERUM 137 mmol/L (136-145)
[2019-09-17 05:31] VITALS: BP 118/72
[2019-09-17 08:00] VITALS: BP 111/44
[2019-09-17 15:06] VITALS: BP 106/57
[2019-09-17 19:11] VITALS: BP 120/77
[2019-09-17 20:00] VITALS: BP 117/69
[2019-09-18 05:18] VITALS: BP 120/81
[2019-09-18 08:57] VITALS: BP 120/54
[2019-09-18 13:55] VITALS: BP 110/58
[2019-09-18 17:56] VITALS: BP 121/69
[2019-09-18 20:04] VITALS: BP 125/71
[2019-09-19 06:30] VITALS: BP 116/70
[2019-09-19 08:27] VITALS: BP 131/54
[2019-09-19 12:09] VITALS: BP 127/89
[2019-09-19 13:29] VITALS: BP 127/89
[2019-09-19 17:25] VITALS: BP 112/61
[2019-09-19 20:57] VITALS: BP 122/76
[2019-09-20 05:31] VITALS: BP 108/63
[2019-09-20 09:07] VITALS: BP 122/80
[2019-09-20 13:45] VITALS: BP 130/82
[2019-09-20 15:36] VITALS: BP 112/65
[2019-09-20 20:57] VITALS: BP 137/73
[2019-09-21 05:42] VITALS: BP 109/63
[2019-09-21 08:35] VITALS: BP 124/76
[2019-09-21 16:00] VITALS: BP 113/61
[2019-09-21 20:35] VITALS: BP 132/79
[2019-09-22 05:30] VITALS: BP 111/60
[2019-09-22 08:48] VITALS: BP 110/72
[2019-09-22 12:34] VITALS: BP 114/71
[2019-09-22 16:40] VITALS: BP 104/41
[2019-09-22 19:29] VITALS: BP 136/89
[2019-09-22 21:45] VITALS: BP 133/76
[2019-09-23 09:28] VITALS: BP 102/59
[2019-09-23 12:38] VITALS: BP 98/41
[2019-09-23 13:42] VITALS: BP 98/41
== END 2019-09-23 14:09 | disposition home or self-care (01) | DRG 753 ==
LOC: ED 18:58 → MU 09-15 19:48
PROVIDERS: Emergency Medicine; ADMIT General Practice
DX: F31.30 Bipolar disorder, current episode depressed, mild or moderate severity, unspecified (principal); R44.0 Auditory hallucinations; R45.851 Suicidal ideations; F41.1 Generalized anxiety disorder; F12.10 Cannabis abuse, uncomplicated; Z91.5 Personal history of self-harm; Z68.32 Body mass index [BMI] 32.0-32.9, adult
CPT/HCPCS: G0378; G0480

== ENCOUNTER 2019-09-29 07:50 | Emergency (ER) | payer OTHER ==
[~2019-09-29] VITALS: Ht 180.3 cm; Wt 102.5 kg
[2019-09-29 08:11] VITALS: Ht 180.3 cm; Wt 102.5 kg
[2019-09-29 09:29] LABS: CALCIUM 9.3 mg/dL (8.5-10.1); CARBON DIOXIDE 23.6 mmol/L (21-32); CHLORIDE SERUM 105 mmol/L (98-107); CREATININE SERUM 1.3 mg/dL (0.7-1.3); GFR1 > 60 mL/min; GLUCOSE SERUM 89 mg/dL (74-106); POTASSIUM SERUM 3.4 mmol/L (3.5-5.1); SODIUM SERUM 143 mmol/L (136-145)
[2019-09-29 09:34] LABS: ALBUMIN 4.2 g/dL (3.4-5.0); ALKALINE PHOSPHATASE 71 U/L (46-116); ALT/SGPT 32 U/L (16-63); AST/SGOT 48 U/L (15-37); BILIRUBIN TOTAL 1.77 mg/dL (0.20-1.00); TOTAL PROTEIN, SERUM 7.9 g/dL (6.4-8.2)
[2019-09-29 09:40] LABS: BASOPHIL % 0.4 % (0-2); PLATELET COUNT 237 x10^3mcL (130-400); RED CELL DISTRIBUTION WIDTH 13.3 % (11.5-14.5)
[2019-09-29 12:15] LABS: microscopic required? NO
[2019-09-29 12:40] LABS: AMPHETAMINE QUAL UR POSITIVE (See below)
[2019-09-29 12:42] LABS: UA SPECIFIC GRAVITY >=1.030 (1.005-1.035); urine erythrocyte NEGATIVE (NEGATIVE)
[2019-09-29 15:50] VITALS: BP 156/67
== END 2019-09-29 15:50 | disposition home or self-care (01) ==
LOC: ED 07:50
PROVIDERS: Emergency Medicine
DX: R45.851 Suicidal ideations (principal); F31.9 Bipolar disorder, unspecified; F15.20 Other stimulant dependence, uncomplicated; E78.00 Pure hypercholesterolemia, unspecified; F17.210 Nicotine dependence, cigarettes, uncomplicated; E66.9 Obesity, unspecified; Z68.31 Body mass index [BMI] 31.0-31.9, adult; Z71.6 Tobacco abuse counseling; Z88.8 Allergy status to other drugs, medicaments and biological substances; Z91.013 Allergy to seafood
CPT/HCPCS: 36415; 99406; G0480

== ENCOUNTER 2019-11-07 20:11 | Emergency (ER) | payer OTHER ==
[~2019-11-07] VITALS: Ht 180.3 cm; Wt 108.4 kg
[2019-11-07 20:51] VITALS: Ht 180.3 cm; Wt 108.4 kg
[2019-11-07 22:59] LABS: BASOPHIL % 0.6 % (0-2); PLATELET COUNT 310 x10^3mcL (130-400); RED CELL DISTRIBUTION WIDTH 14.5 % (11.5-14.5)
[2019-11-07 23:04] LABS: microscopic required? NO
[2019-11-07 23:09] LABS: CALCIUM 9.4 mg/dL (8.5-10.1); CARBON DIOXIDE 25.4 mmol/L (21-32); CHLORIDE SERUM 106 mmol/L (98-107); CREATININE SERUM 1.3 mg/dL (0.7-1.3); GFR1 > 60 mL/min; GLUCOSE SERUM 76 mg/dL (74-106); POTASSIUM SERUM 4.2 mmol/L (3.5-5.1); SODIUM SERUM 142 mmol/L (136-145)
[2019-11-07 23:13] LABS: ALKALINE PHOSPHATASE 79 U/L (46-116); ALT/SGPT 32 U/L (16-63); AST/SGOT 16 U/L (15-37); BILIRUBIN TOTAL 0.5 mg/dL (0.20-1.00); TOTAL PROTEIN, SERUM 8.1 g/dL (6.4-8.2)
[2019-11-07 23:53] LABS: UA SPECIFIC GRAVITY >=1.030 (1.005-1.035); urine erythrocyte NEGATIVE (NEGATIVE)
[2019-11-08 01:57] LABS: AMPHETAMINE QUAL UR NONE DETECTED (See below)
[2019-11-08 18:51] VITALS: BP 125/50
== END 2019-11-08 18:51 ==
LOC: ED 20:11
PROVIDERS: Emergency Medicine
DX: F32.9 Major depressive disorder, single episode, unspecified (principal); R45.851 Suicidal ideations; Z88.8 Allergy status to other drugs, medicaments and biological substances; Z91.013 Allergy to seafood
CPT/HCPCS: 36415; G0480

== ENCOUNTER 2019-11-23 23:43 | Inpatient (IN) | payer OTHER ==
[~2019-11-23] VITALS: Ht 180.3 cm; Wt 105.7 kg
[2019-11-24 04:28] LABS: CARBON DIOXIDE 27.2 mmol/L (21-32); CHLORIDE SERUM 108 mmol/L (98-107); CREATININE SERUM 1.3 mg/dL (0.7-1.3); GFR1 > 60 mL/min; GLUCOSE SERUM 90 mg/dL (74-106); POTASSIUM SERUM 3.3 mmol/L (3.5-5.1); SODIUM SERUM 140 mmol/L (136-145)
[2019-11-24 04:32] LABS: ALBUMIN 3.7 g/dL (3.4-5.0); ALKALINE PHOSPHATASE 76 U/L (46-116); ALT/SGPT 46 U/L (16-63); BILIRUBIN TOTAL 1.85 mg/dL (0.20-1.00); TOTAL PROTEIN, SERUM 7.9 g/dL (6.4-8.2)
[2019-11-24 04:36] LABS: BASOPHIL % 0.7 % (0-2); PLATELET COUNT 197 x10^3mcL (130-400); RED CELL DISTRIBUTION WIDTH 13.7 % (11.5-14.5)
[2019-11-24 04:54] LABS: AST/SGOT 56 U/L (15-37)
[2019-11-24 17:50] LABS: AMPHETAMINE QUAL UR POSITIVE (See below)
[2019-11-25 02:37] VITALS: BP 96/71
[2019-11-25 06:11] VITALS: BP 118/65
[2019-11-25 09:00] VITALS: BP 123/67
[2019-11-25 17:01] VITALS: BP 117/71
[2019-11-25 20:24] VITALS: BP 122/70
[2019-11-26 06:15] VITALS: BP 118/67
[2019-11-26 08:33] VITALS: BP 131/85
[2019-11-26 12:08] VITALS: BP 110/63
[2019-11-26 16:46] VITALS: BP 123/68
[2019-11-26 20:29] VITALS: BP 126/63
[2019-11-27 07:53] VITALS: BP 139/80
[2019-11-27] MEDS ORDERED: TRA50 PO (10:28)
[2019-11-27] MEDS ORDERED: BACO TOP (10:29)
[2019-11-27 11:02] VITALS: Ht 180.3 cm; Wt 105.7 kg
[2019-11-27 13:28] VITALS: BP 139/80
[2019-11-27 16:58] VITALS: BP 119/57
[2019-11-28 05:38] VITALS: BP 127/68
[2019-11-28 09:14] VITALS: BP 143/62
[2019-11-28 15:05] VITALS: BP 124/56
[2019-11-28 16:45] VITALS: BP 114/48
[2019-11-28 20:38] VITALS: BP 135/66
[2019-11-29 08:12] VITALS: BP 119/54
[2019-11-29] MEDS ORDERED: PROZAC40 MG PO (10:22)
[2019-11-29] MEDS ORDERED: ZYPREXA10 M1 PO (10:22)
[2019-11-29 12:04] VITALS: BP 119/54
[2019-11-29 12:15] VITALS: BP 121/66
[2019-11-29] MEDS ORDERED: TRA50 PO (14:34)
[2019-11-29] MEDS ORDERED: BACO TOP (14:35)
[2019-11-29 15:04] VITALS: BP 119/54
== END 2019-11-29 15:03 | DRG 750 ==
LOC: ED 23:43 → MU 11-25 00:08 → DU 11-25 00:08 → MU 11-25 02:23
PROVIDERS: Emergency Medicine; ADMIT Family Medicine
DX: F25.9 Schizoaffective disorder, unspecified (principal); R45.851 Suicidal ideations; R74.0 Nonspecific elevation of levels of transaminase and lactic acid dehydrogenase [LDH]; E80.6 Other disorders of bilirubin metabolism; F15.10 Other stimulant abuse, uncomplicated; F12.10 Cannabis abuse, uncomplicated; E87.6 Hypokalemia; F31.9 Bipolar disorder, unspecified; F41.9 Anxiety disorder, unspecified; F17.210 Nicotine dependence, cigarettes, uncomplicated; Z59.0 Homelessness; Z22.322 Carrier or suspected carrier of Methicillin resistant Staphylococcus aureus; Z68.32 Body mass index [BMI] 32.0-32.9, adult; Z91.5 Personal history of self-harm; Z88.8 Allergy status to other drugs, medicaments and biological substances; Z56.0 Unemployment, unspecified; Z79.899 Other long term (current) drug therapy
CPT/HCPCS: G0378; G0480; Q0092

== ENCOUNTER 2020-02-01 19:55 | Inpatient (IN) | payer OTHER ==
[~2020-02-01] VITALS: Ht 180.3 cm; Wt 98.0 kg
[~2020-02-01 19:55] MED LIST changes: +TRA50 PO
[2020-02-01 20:01] VITALS: Ht 180.3 cm; Wt 98.0 kg
[2020-02-01 20:48] LABS: microscopic required? NO
[2020-02-01 21:00] LABS: CALCIUM 9.1 mg/dL (8.5-10.1); CARBON DIOXIDE 28.5 mmol/L (21-32); CHLORIDE SERUM 105 mmol/L (98-107); CREATININE SERUM 1.3 mg/dL (0.7-1.3); GFR1 > 60 mL/min; GLUCOSE SERUM 109 mg/dL (74-106); POTASSIUM SERUM 3.4 mmol/L (3.5-5.1); SODIUM SERUM 143 mmol/L (136-145)
[2020-02-01 21:01] LABS: urine erythrocyte NEGATIVE (NEGATIVE)
[2020-02-01 21:01] LABS: BASOPHIL % 0.2 % (0-2); PLATELET COUNT 255 x10^3mcL (130-400); RED CELL DISTRIBUTION WIDTH 13.7 % (11.5-14.5)
[2020-02-01 21:05] LABS: ALBUMIN 3.4 g/dL (3.4-5.0); ALKALINE PHOSPHATASE 66 U/L (46-116); ALT/SGPT 35 U/L (16-63); AST/SGOT 26 U/L (15-37); BILIRUBIN TOTAL 0.27 mg/dL (0.20-1.00); TOTAL PROTEIN, SERUM 6.9 g/dL (6.4-8.2)
[2020-02-01 21:26] LABS: AMPHETAMINE QUAL UR POSITIVE (See below)
[2020-02-02 22:30] VITALS: BP 145/81
[2020-02-03 07:10] VITALS: BP 135/62
[2020-02-03 11:40] VITALS: BP 129/80
[2020-02-03 15:59] VITALS: BP 132/73
[2020-02-03 21:00] VITALS: BP 142/69
[2020-02-03 21:07] LABS: BASOPHIL % 0.7 % (0-2); PLATELET COUNT 245 x10^3mcL (130-400); RED CELL DISTRIBUTION WIDTH 13.7 % (11.5-14.5)
[2020-02-03 21:15] LABS: CALCIUM 8.6 mg/dL (8.5-10.1); CARBON DIOXIDE 27.2 mmol/L (21-32); CHLORIDE SERUM 106 mmol/L (98-107); CREATININE SERUM 0.9 mg/dL (0.7-1.3); GFR1 > 60 mL/min; GLUCOSE SERUM 96 mg/dL (74-106); POTASSIUM SERUM 3.2 mmol/L (3.5-5.1); SODIUM SERUM 142 mmol/L (136-145)
[2020-02-04 05:36] VITALS: BP 142/85
[2020-02-04 09:30] VITALS: BP 135/71
[2020-02-04 20:14] VITALS: BP 151/91
[2020-02-05 05:59] VITALS: BP 129/75
[2020-02-05 07:21] VITALS: BP 134/85
[2020-02-05 19:03] VITALS: BP 135/78
[2020-02-05 20:10] VITALS: BP 135/71
[2020-02-06 05:43] VITALS: BP 121/73
[2020-02-06 09:04] VITALS: BP 133/66
[2020-02-06 16:52] VITALS: BP 140/69
[2020-02-06 21:00] VITALS: BP 142/69
[2020-02-07 06:19] VITALS: BP 133/68
[2020-02-07 08:48] VITALS: BP 123/81
[2020-02-07 11:28] VITALS: BP 123/81
[2020-02-07 20:05] VITALS: BP 129/76
[2020-02-08 05:00] VITALS: BP 117/65
[2020-02-08 07:51] VITALS: BP 128/52
[2020-02-08 09:23] VITALS: BP 123/81
== END 2020-02-08 10:15 | disposition home or self-care (01) | DRG 750 ==
LOC: ED 19:55 → MU 02-02 21:12
PROVIDERS: Specialist; ADMIT Family Medicine
DX: F25.9 Schizoaffective disorder, unspecified (principal); E87.6 Hypokalemia; F41.9 Anxiety disorder, unspecified; F15.188 Other stimulant abuse with other stimulant-induced disorder; F31.9 Bipolar disorder, unspecified; Z88.8 Allergy status to other drugs, medicaments and biological substances; Z82.49 Family history of ischemic heart disease and other diseases of the circulatory system; Z22.322 Carrier or suspected carrier of Methicillin resistant Staphylococcus aureus
CPT/HCPCS: G0378; G0480; J2060; J7030; Q0092

== ENCOUNTER 2020-04-08 18:40 | Emergency (ER) | payer OTHER ==
[~2020-04-08] VITALS: Ht 180.3 cm; Wt 91.6 kg
[2020-04-08 19:01] VITALS: Ht 180.3 cm; Wt 91.6 kg
[2020-04-08 19:19] VITALS: BP 110/75
== END 2020-04-08 19:19 | disposition left against medical advice (07) ==
LOC: ED 18:40
DX: R45.851 Suicidal ideations (principal); F31.9 Bipolar disorder, unspecified; Z88.8 Allergy status to other drugs, medicaments and biological substances; Z91.013 Allergy to seafood
CPT/HCPCS: G0480; U0003-CS

== ENCOUNTER 2020-04-25 17:06 | Emergency (ER) | payer OTHER, SELFPAY ==
[~2020-04-25] VITALS: Ht 180.3 cm; Wt 97.5 kg
[2020-04-25 17:12] VITALS: Ht 180.3 cm; Wt 97.5 kg
[2020-04-25 17:50] LABS: BASOPHIL % 0.4 % (0-2); PLATELET COUNT 203 x10^3mcL (130-400); RED CELL DISTRIBUTION WIDTH 13.9 % (11.5-14.5)
[2020-04-25 18:00] LABS: CALCIUM 8.7 mg/dL (8.5-10.1); CARBON DIOXIDE 26.4 mmol/L (21-32); CHLORIDE SERUM 102 mmol/L (98-107); CREATININE SERUM 1.5 mg/dL (0.7-1.3); GFR1 > 60 mL/min; GLUCOSE SERUM 94 mg/dL (74-106); POTASSIUM SERUM 3.4 mmol/L (3.5-5.1); SODIUM SERUM 140 mmol/L (136-145)
[2020-04-25 18:05] LABS: ALBUMIN 3.6 g/dL (3.4-5.0); ALKALINE PHOSPHATASE 47 U/L (46-116); ALT/SGPT 31 U/L (16-63); AST/SGOT 47 U/L (15-37); BILIRUBIN TOTAL 1.2 mg/dL (0.20-1.00); TOTAL PROTEIN, SERUM 7.2 g/dL (6.4-8.2)
[2020-04-25 19:21] LABS: AMPHETAMINE QUAL UR POSITIVE (See below)
--- NOTE | 2020-04-27 20:46 | NUR ---
Change of shift report given earlier. Will continue to monitor for pending results
[2020-04-27 21:30] VITALS: BP 115/77
== END 2020-04-27 21:30 | disposition home or self-care (01) ==
LOC: ED 17:06
PROVIDERS: Student in an Organized Health Care Education/Training Program
DX: R45.851 Suicidal ideations (principal); F19.10 Other psychoactive substance abuse, uncomplicated; Z88.8 Allergy status to other drugs, medicaments and biological substances; Z91.013 Allergy to seafood
CPT/HCPCS: G0480; U0003-CS

== ENCOUNTER 2020-08-09 08:32 | Emergency (ER) | payer OTHER ==
[~2020-08-09] VITALS: Ht 180.3 cm; Wt 104.3 kg
[~2020-08-09 08:32] MED LIST changes: +PROZ20 PO
[2020-08-09 08:41] VITALS: Ht 180.3 cm; Wt 104.3 kg
[2020-08-09 09:12] LABS: CALCIUM 9.3 mg/dL (8.5-10.1); CARBON DIOXIDE 29.1 mmol/L (21-32); CHLORIDE SERUM 102 mmol/L (98-107); CREATININE SERUM 1.3 mg/dL (0.7-1.3); GFR1 > 60 mL/min; GLUCOSE SERUM 97 mg/dL (74-106); POTASSIUM SERUM 3.5 mmol/L (3.5-5.1); SODIUM SERUM 138 mmol/L (136-145)
[2020-08-09 09:13] LABS: BASOPHIL % 0.1 % (0-2); PLATELET COUNT 267 x10^3mcL (130-400); RED CELL DISTRIBUTION WIDTH 13.6 % (11.5-14.5)
[2020-08-09 09:16] LABS: ALBUMIN 4.2 g/dL (3.4-5.0); ALKALINE PHOSPHATASE 62 U/L (46-116); ALT/SGPT 29 U/L (16-63); AST/SGOT 28 U/L (15-37); BILIRUBIN TOTAL 1.94 mg/dL (0.20-1.00); TOTAL PROTEIN, SERUM 7.8 g/dL (6.4-8.2)
[2020-08-09 10:51] VITALS: BP 121/51
== END 2020-08-09 12:40 | disposition home or self-care (01) ==
LOC: ED 08:32
PROVIDERS: Emergency Medicine
DX: F32.9 Major depressive disorder, single episode, unspecified (principal); R45.851 Suicidal ideations; Z88.8 Allergy status to other drugs, medicaments and biological substances; Z20.828 Contact with and (suspected) exposure to other viral communicable diseases; Z91.013 Allergy to seafood
CPT/HCPCS: G0480